=== PATIENT | female | born 2000 | race African-American/Black ===

== ENCOUNTER 2025-05-17 21:40 | Emergency (ER) | payer MEDICAID ==
[~2025-05-17] VITALS: Ht 170.2 cm; Wt 71.0 kg
[2025-05-17 21:46] VITALS: BP 132/76; TEMP 37.4; O2SAT 98
[2025-05-17 21:51] VITALS: PULSE 77; RESP 18; O2SAT 99
[2025-05-17 23:39] LABS: BASOPHILS % 0.3 % (0.0-2.0); EOSINOPHILS % 0.6 % (0.0-5.0); HEMATOCRIT. 34.6 % (36.0-48.0); HEMOGLOBIN. 11.6 g/dL (12.0-16.0); LYMPHOCYTES % 19.6 % (20.0-50.0); MEAN PLATELET VOLUME 10.1 fl (7.4-10.4); MONOCYTES % 14.1 % (2.0-8.0); NEUTROPHILS % 65.4 % (40.0-76.0); PLATELET 203 x1000/uL (130-400); RED BLOOD CELL COUNT 3.84 mill/uL (4.2-5.4); RED CELL DISTRIBUTION WIDTH 13.4 % (11.6-14.6)
[2025-05-17 23:48] LABS: CREATININE 0.9 mg/dL (0.6-1.0); HCG SCREEN NEGATIVE
[2025-05-17 23:49] LABS: UREA NITROGEN BLOOD 6 mg/dL (9-23)
[2025-05-17 23:51] LABS: ASPARTATE AMINOTRANSFERASE 29 IU/L (<34); BILIRUBIN DIRECT 0.3 mg/dL (<=3.0); BILIRUBIN TOTAL 0.8 mg/dL (0.1-1.0); PROTEIN TOTAL 7.7 g/dL (6.0-8.3)
[2025-05-18] MEDS: ACETAMINOPHEN 500MG TABLET PO ONE (00:07)
[2025-05-18] MEDS: ONDANSETRON 4MG ODT PO ONE (00:07)
[2025-05-18] MEDS ORDERED: POTASSIUM CHLORIDE 20MEQ/PACKET PO ONE (00:45)
[2025-05-18] MEDS ORDERED: SODIUM CHLORIDE 0.9% 1,000 ML IV ONE (00:45)
== END 2025-05-18 02:12 | disposition home or self-care (01) ==
LOC: ER 21:40
DX: R10.13 Epigastric pain (principal); R11.2 Nausea with vomiting, unspecified
CPT/HCPCS: 99283; 80076; 80048; 84703; 83690; 85025; 36415; Q0162; J7030